=== PATIENT | male | born 1930 | race Caucasian/White ===

== ENCOUNTER 2019-06-02 10:44 | Observation (INO) | payer OTHER, MEDICARE ==
[~2019-06-02] VITALS: Ht 182.9 cm; Wt 100.2 kg
[2019-06-02] MEDS ORDERED: MELA3 PO (11:59)
[2019-06-02] MEDS ORDERED: THERA1 EACH (11:59)
[2019-06-02] MEDS ORDERED: CALCIUM 600 +1 EA11 PO (11:59)
[2019-06-02] MEDS ORDERED: OMEP20ER PO (12:00)
[2019-06-02] MEDS ORDERED: DABI150C (12:00)
[2019-06-02] MEDS ORDERED: GABA300 PO (12:00)
[2019-06-02] MEDS ORDERED: Hytrin2 MG PO (12:00)
[2019-06-02] MEDS ORDERED: ALBU90OI61 INH (12:01)
[2019-06-02] MEDS ORDERED: STRIVERDI RESPIM4 GM IH (12:01)
[2019-06-02 12:09] LABS: BASOPHILS ABSOLUTE AUTO 0.01 K/mm3 (0.00-0.23); BASOPHILS PERCENT AUTO 0 % (0-2); EOSINOPHILS ABSOLUTE AUTO 0.17 K/mm3 (0.00-0.68); EOSINOPHILS PERCENT AUTO 5 % (0-6); Hematocrit 34.4 % (37.0-53.0); Hemoglobin 10.4 g/dL (13.5-17.5); IMMATURE GRAN ABSOLUTE AUTO 0.01 K/mm3 (0.00-0.10); IMMATURE GRAN PERCENT AUTO 0 % (0-1); LYMPHOCYTES ABSOLUTE AUTO 0.56 K/mm3 (0.84-5.20); LYMPHOCYTES PERCENT AUTO 17 % (21-46); MONOCYTES ABSOLUTE AUTO 0.46 K/mm3 (0.16-1.47); MONOCYTES PERCENT AUTO 14 % (4-13); Mean Corpuscular HGB 31.7 pg (26.0-34.0); Mean Corpuscular HGB Conc 30.2 g/dL (31.5-36.5); Mean Corpuscular Volume 105 fL (80-100); Mean Platelet Volume 10.4 fL (9.1-12.4); NEUTROPHILS ABSOLUTE AUTO 2.12 K/mm3 (1.96-9.15); NEUTROPHILS PERCENT AUTO 64 % (41-73); Platelet Count 84 K/mm3 (150-400); RDW Coefficient Variation 17.3 % (11.7-14.2); RDW Standard Deviation 67.4 fL (35.1-46.3); Red Blood Cell Count 3.28 M/mm3 (4.30-5.90); White Blood Cell Count 3.33 K/mm3 (4.00-11.30)
[2019-06-02 12:21] LABS: Alanine Aminotransfer (ALT/SGP 16 U/L (12-78); Albumin, Blood 3.4 g/dL (3.4-5.0); Albumin/Globulin Ratio 0.9 (0.8-1.8); Alk Phos 83 U/L (50-136); Anion Gap 3 mmol/L (6-16); Aspartate Aminotrans (AST/SGOT 13 U/L (12-37); Bilirubin, Total 0.6 mg/dL (0.1-1.0); Blood Urea Nitrogen 12 mg/dL (8-24); Bun/Creatinine Ratio 12.8 (12.0-20.0); CO2, Blood 31 mmol/L (21-32); Calcium, Blood 8.9 mg/dL (8.5-10.1); Chloride, Blood 109 mmol/L (98-108); Creatinine, Blood 0.94 mg/dL (0.60-1.20); Globulin, Blood 3.6 g/dL (2.2-4.0); Glomerular Filtration Rate >60 (60-); Glucose, Blood 104 mg/dL (70-99); Potassium, Blood 4.1 mmol/L (3.5-5.5); Sodium, Blood 143 mmol/L (136-145); Troponin I 0.015 ng/mL (0.000-0.040)
[2019-06-02] MEDS ORDERED: ATOR40TA (14:41)
[2019-06-02] MEDS ORDERED: ATOR40TA PO (14:42)
[2019-06-02] MEDS ORDERED: THERA-D2000 UNIT PO (14:42)
[2019-06-02] MEDS ORDERED: FERSU300 PO (14:44)
[2019-06-02] MEDS ORDERED: FOLI400 PO (14:46)
[2019-06-02 15:01] LABS: CHOL/HDL RATIO 2.3; Cholesterol 107 mg/dL (50-200); HDL Cholesterol 47 mg/dL (>39); Low Density Lipoprotein Chol 45 mg/dL (0-110); Triglycerides 76 mg/dL (30-160); Very Low Density Lipoprot Chol 15 mg/dL (6-32)
--- NOTE | 2019-06-02 15:34 | NUR ---
Echocardiogram completed.
--- NOTE | 2019-06-03 04:07 | NUR ---
SHIFT SUMMARY: PT IS ALERT AND ORIENTED. PT IS CALM AND COOPERATIVE WITH CARE. PT CALLS APPROPRIATELY. PT IS A STANDBY ASSIST, UP TO THE BSC ON SEVERAL OCCASIONS. PT DENIES PAIN, NAUSEA, VOMITING, AND SOB. POSSIBLE DC TODAY. NO ACUTE CHANGES OR COMPLICATIONS OVERNIGHT. WILL CONTINUE TO MONITOR.
[2019-06-03] MEDS ORDERED: AMLO5 PO (12:48)
[2019-09-02] MEDS ORDERED: CLOB.05TO (17:39)
[2019-09-02] MEDS ORDERED: KETO15TC TOP (17:40)
[2019-09-02] MEDS ORDERED: DOCU100 PO (17:41)
[2019-09-02] MEDS ORDERED: EYE VITAMIN (17:41)
[2019-09-02] MEDS ORDERED: FERSU300 PO (17:42)
[2019-09-02] MEDS ORDERED: POTA8 PO (17:42)
[2019-09-02] MEDS ORDERED: Dexamethasone4 MG PO (20:50)
== END 2019-06-03 13:53 | disposition home or self-care (01) ==
LOC: ER 10:44 → MEDS 10:45 → ENPENDDIS 06-03 12:25 → MEDS 06-03 13:53
PROVIDERS: Emergency Medicine; ADMIT Family Medicine
DX: I63.9 Cerebral infarction, unspecified (principal); I48.91 Unspecified atrial fibrillation; I10 Essential (primary) hypertension; K21.9 Gastro-esophageal reflux disease without esophagitis; G62.9 Polyneuropathy, unspecified; D61.818 Other pancytopenia; Z86.73 Personal history of transient ischemic attack (TIA), and cerebral infarction without residual deficits; Z88.8 Allergy status to other drugs, medicaments and biological substances; Z79.899 Other long term (current) drug therapy; Z87.891 Personal history of nicotine dependence; Z98.890 Other specified postprocedural states; Z85.118 Personal history of other malignant neoplasm of bronchus and lung
CPT/HCPCS: 36415; 70450; 70551; 80053; 80061; 84484; 85025; 93005; 93010; 93306; 93880; 94760; 97116; 97161; 97166; 97530; 97535; 99285-25; G0378